=== PATIENT | female | born 1975 | race Caucasian/White ===

== ENCOUNTER 2016-08-27 13:45 | Emergency (ER) | payer OTHER ==
[2016-08-27 13:57] VITALS: BP 130/82; PULSE 69; TEMP 98.1; BMI 26.6
[2016-08-27] MEDS ORDERED: diazePAM 5 MG TABLET ONE (15:07)
[2016-08-27] MEDS ORDERED: ACETAMINOPHEN 325 MG TABLET (FP) ONE (15:07)
--- NOTE | 2016-08-27 15:12 | PDOC ---
History of Present Illness - General Chief Complaint: Headache Stated Complaint: HEADACHE Time Seen by Provider: 08/27/16 14:55 History Source: Patient, Spouse Exam Limitations: No Limitations - History of Present Illness Initial Comments: 08/27/16 15:11 c/o headache pain to left head x 10 days. Patient states onset was less intense but has progressively become worse. States is primarily to the left side starts at the occiput and wraps around to the left forehead. Denies nausea or vomiting , denies fever, denies any earache or sore throat pain. Denies any mental status changes, any neurologic changes including weakness, unilateral numbness or tingling. No visual changes.. States some occasional headache that is resolved with Tylenol. Patient works as a preliminary school psychologist, denies alcohol or drug use. Her normal menstrual cycle and denies any recent sexual activity. 08/27/16 15:15 08/27/16 15:17 08/27/16 15:17 Severity: Yes: mild, moderate Associated Symptoms: reports: muscle spasms, nausea/vomiting (no vomiting ). denies: fever/chills, loss of consciousness, slurred speech, tingling in legs/ feet Past History - Travel Traveled outside of the country in the last 30 days: No Close contact w/someone who was outside of country & ill: No - Past Medical History Allergies/Adverse Reactions: Allergies Allergy/AdvReac Type Severity Reaction Status Date / Time amoxicillin [Amoxicillin] Allergy Verified 08/27/16 13:50 ampicillin [Ampicillin] Allergy Verified 08/27/16 13:50 aspirin Allergy Verified 08/27/16 13:50 codeine [Codeine] Allergy Verified 08/27/16 13:50 naproxen [From Naprosyn] Allergy Verified 08/27/16 13:50 Home Medications: Ambulatory Orders Cyclobenzaprine HCl [Flexeril 10 mg] 10 mg PO BID PRN #14 tablet 08/27/16 Asthma: Yes Cancer: No Cardiac Disorders: No Diabetes: Yes (gdm) HTN: Yes Seizures: No Thyroid Disease: No - Psycho/Social/Smoking Cessation Hx Anxiety: No Suicidal Ideation: No Smoking Status: No Smoking History: Never smoked Have you smoked in the past 12 months: No Number of Cigarettes Smoked Daily: 0 Information on smoking cessation initiated: No Hx Alcohol Use: No Drug/Substance Use Hx: No Substance Use Type: Alcohol Hx Substance Use Treatment: No Review of Systems - Review of Systems Able to Perform ROS?: Yes Is the patient limited Citizen Of [place] proficient: Yes Constitutional: Yes: Symptoms Reported, See HPI, Malaise. No: Fever HEENTM: Yes: See HPI, Nose Congestion. No: Symptoms Reported, Blurred Vision, Tearing, Ocular Prothesis Respiratory: Yes: See HPI. No: Symptoms reported Cardiac (ROS): No: Symptoms Reported Musculoskeletal: Yes: Symptoms Reported, See HPI, Back Pain, Muscle Pain Integumentary: No: Symptoms Reported Neurological: Yes: Symptoms reported, See HPI, Headache (wraparound scalp ). No : Numbness Psychiatric: No: Anxiety All Other Systems: Reviewed and Negative *Physical Exam - Vital Signs Last Vital Signs Temp Pulse Resp BP Pulse Ox 98.1 F 69 18 130/82 100 08/27/16 13:55 08/27/16 13:55 08/27/16 13:55 08/27/16 13:55 08/27/16 13:55 - Physical Exam General Appearance: Yes: Nourished, Appropriately Dressed, Apparent Distress, Mild Distress, Moderate Distress HEENT: positive: [place], Normal ENT Inspection, TMs Normal, Pharynx Normal Neck: positive: Supple, Other (with palpable spasm along the sternocleidomastoid that reproduces pain with palpation at the insertion of occiput and reproduces pain with pressure wrap around into front of scalp and forehead muscles , no cervical spine pain/ crepitus ). negative: Tender Respiratory/Chest: positive: Lungs Clear Cardiovascular: positive: Regular Rhythm Musculoskeletal: positive: Normal Inspection, Muscle Spasm Extremity: positive: Normal Capillary Refill, Normal Inspection, Normal Range of Motion Integumentary: positive: Dry, Warm, Pale Neurologic: positive: shoe associate II-XII NML intact, Fully Oriented, Alert, Normal Mood/ Affect, Normal Response, Motor Strength 5/5 Progress Note - Progress Note Progress Note: Tension headache and cervical strain with palpable spasm. We'll treat with antispasmodics and Tylenol as patient has aspirin and NSAID ALLERGY *DC/Admit/Observation/Transfer Diagnosis at time of Disposition: Cervical myofascial strain Qualifiers: Encounter type: initial encounter Qualified Code(s): S16.1XXA - Strain of muscle, fascia and tendon at neck level, initial encounter - Discharge Dispostion Disposition: HOME Condition at time of disposition: Stable Admit: No - Referrals Referrals: Jose Antonio Blount MD [Staff Physician] - - Patient Instructions Printed Discharge Instructions: DI for Cervical Muscle Strain Additional Instructions: Rest, no heavy lifting or exercise until pain is resolved Hot soaks to neck and low back as often as possible/hot showers or Jacuzzis No massage or therapy until spasm is gone Continue Tylenol 2 - 500 mg tablets every 6 hours for the next 3 days then as needed for pain and swelling Cyclobenzaprine 1-10mg every 8 hours as needed for spasm If not significant improvement within 24 hours with medication and rest regime, followup with private physician for change in medications and /or therapy. - Post Discharge Activity Work/School Note: Back to Work
[2016-08-27] MEDS ORDERED: ACETAMINOPHEN 500 MG TABLET (FP) PO ONE (15:13)
[2016-08-27] MEDS ORDERED: diazePAM 5 MG TABLET PO ONE (15:14)
== END 2016-08-27 15:30 | disposition home or self-care (01) ==
LOC: JER 13:45
DX: S16.1XXA Strain of muscle, fascia and tendon at neck level, initial encounter (principal); G44.209 Tension-type headache, unspecified, not intractable; M62.838 Other muscle spasm; I10 Essential (primary) hypertension; X58.XXXA Exposure to other specified factors, initial encounter; Y93.89 Activity, other specified; Y92.89 Other specified places as the place of occurrence of the external cause
CPT/HCPCS: 99281-25

== ENCOUNTER 2016-09-15 11:56 | Emergency (ER) | payer OTHER ==
[2016-09-15 12:02] VITALS: BP 146/93; PULSE 70; TEMP 98.6; BMI 27.4
[2016-09-15] MEDS ORDERED: METOCLOPRAMIDE HCL INJECTION 10 MG/2 ML VIAL IVPUSH ONE (12:50)
--- NOTE | 2016-09-15 12:52 | PDOC ---
History of Present Illness - General History Source: Patient Exam Limitations: No Limitations - History of Present Illness Initial Comments: 09/15/16 13:44 The patient is a 41 year old female with no significant past medical history, who presents to the ER with hypertension, dizzines and headache for one day. Patient states she had hypertension yesterday, measured at 154/104. She states the blood pressure today lowered but she had associated mild pressure like headache and dizziness. Patient localizes the headache to the left side on interview. She states she previously had hypertension three years ago, for which she took hypertension medication for one year and resolved the issue. Patient says her baseline blood pressure falls in the range of 120-128 systolic range. Denies shortness of breath, chest pain Denies nausea, vomiting, diarrhea Denies vision changes, neck pain, back pain, syncope Denies fever, chills, cough <Mary Bianchi - Last Filed: 09/15/16 13:44> <Hubert Ibarra - Last Filed: 09/15/16 15:42> - General Chief Complaint: Lightheaded Stated Complaint: BP PROBLEM Time Seen by Provider: 09/15/16 12:39 Past History <Mary Bianchi - Last Filed: 09/15/16 13:44> - Past Medical History Asthma: Yes Cancer: No Cardiac Disorders: No Diabetes: Yes (GESTATIONAL) HTN: Yes (GESTATIONAL) Seizures: No Thyroid Disease: No - Psycho/Social/Smoking Cessation Hx Anxiety: No Suicidal Ideation: No Smoking Status: No Smoking History: Never smoked Have you smoked in the past 12 months: No Number of Cigarettes Smoked Daily: 0 Hx Alcohol Use: No Drug/Substance Use Hx: No Substance Use Type: None Hx Substance Use Treatment: No <Hubert Ibarra - Last Filed: 09/15/16 15:42> - Past Medical History Allergies/Adverse Reactions: Allergies Allergy/AdvReac Type Severity Reaction Status Date / Time amoxicillin [Amoxicillin] Allergy Verified 09/15/16 12:02 ampicillin [Ampicillin] Allergy Verified 09/15/16 12:02 aspirin Allergy Verified 09/15/16 12:02 codeine [Codeine] Allergy Verified 09/15/16 12:02 naproxen [From Naprosyn] Allergy Verified 09/15/16 12:02 Home Medications: Ambulatory Orders Cyclobenzaprine HCl [Flexeril 10 mg] 10 mg PO BID PRN #14 tablet 08/27/16 Review of Systems - Review of Systems Able to Perform ROS?: Yes Comments:: 09/15/16 13:44 CONSTITUTIONAL: No reported: Fever, Chills, Diaphoresis, Generalized Weakness, Malaise, Loss of Appetite HEENT: No reported: Rhinorrhea, Nasal Congestion, Throat Pain, Throat Swelling, Difficulty Swallowing, Mouth Swelling, Ear Pain, Eye Pain, Visual Changes CARDIOVASCULAR: No reported: Chest Pain, Syncope, Palpitations, Irregular Heart Rate, Lightheadedness, Peripheral Edema RESPIRATORY: No reported: Cough, Shortness of Breath, SOB with Exertion, Orthopnea, Wheezing , Stridor, Hemoptysis GASTROINTESTINAL: No reported: Abdominal pain, Abdominal Distension, Nausea, Vomiting, Diarrhea, Constipation, Melena, Hematochezia GENITOURINARY: No reported: Dysuria, Frequency, Urgency, Hesitancy, Flank Pain, Genital Pain MUSCULOSKELETAL: No reported: Myalgia, Arthralgia, Joint Swelling, Back pain, Neck Pain SKIN: No reported: Rash, Itching, Pallor HEMEATOLOGIC/IMMUNOLOGIC: No reported: Easy Bleeding, Easy Bruising, Lymphadenopathy, Frequent infections ENDOCRINE: No reported: Unexplained Weight Gain, Unexplained Weight Loss, Heat Intolerance , Cold Intolerance NEUROLOGIC: Reported: (+) headache, (+) dizziness No reported: Focal Weakness, Paresthesias, Vertigo, Lightheadedness, Unsteady Gait, Seizure, Mental Status Changes, Incontinence PSYCHIATRIC: No reported: Anxiety, Depression <Uts,Mary - Last Filed: 09/15/16 13:44> *Physical Exam - Vital Signs Last Vital Signs Temp Pulse Resp BP Pulse Ox 98.6 F 70 20 146/93 99 09/15/16 11:59 09/15/16 11:59 09/15/16 11:59 09/15/16 11:59 09/15/16 11:59 - Physical Exam Comments: 09/15/16 13:44 GENERAL: The patient is awake, alert, and fully oriented, Nontoxic - in no acute distress. HEAD: Normocephalic, atraumatic. EYES: extraocular movements intact, sclera anicteric, conjunctiva clear. ENT: Normal voice, Moist mucous membranes. NECK: Normal range of motion, supple LUNGS: Breath sounds equal, clear to auscultation bilaterally. No wheezes, no rhonchi, no rales. HEART: Regular rate and rhythm, without murmur, rub or gallop. ABDOMEN: Soft, nontender, normoactive bowel sounds. No guarding, no rebound.No CVA tenderness EXTREMITIES: Normal range of motion, no edema. No clubbing or cyanosis. No cords, erythema, or tenderness. NEUROLOGICAL: No facial assymetry, Normal speech, PSYCH: Normal mood, normal affect. SKIN: Warm, Dry, normal turgor <Uts,Mary - Last Filed: 09/15/16 13:44> - Vital Signs Last Vital Signs Temp Pulse Resp BP Pulse Ox 98.6 F 70 20 146/93 99 09/15/16 11:59 09/15/16 11:59 09/15/16 11:59 09/15/16 11:59 09/15/16 11:59 <Hubert Ibarra - Last Filed: 09/15/16 15:42> Heart Score/ECG Review - ECG Impressions Comment:: 09/15/16 14:42 Twelve-lead EKG was performed and reviewed by me. There is normal sinus rhythm with a normal rate. rate of 62 The axis is normal. The intervals are normal. There is normal R wave progression There are no ST or T wave abnormalities. Impression: Normal twelve-lead EKG <Hubert Ibarra - Last Filed: 09/15/16 15:42> ED Treatment Course - LABORATORY CBC & Chemistry Diagram: 09/15/16 14:11 09/15/16 14:11 <Hubert Ibarra - Last Filed: 09/15/16 15:42> Medical Decision Making - Medical Decision Making 09/15/16 12:51 41y F hx of gestational htn, gestational dm presents with compalint of mild headache and sh checked her bp and saw it was 155 sbp and was concerned so came to the ED. The pt is well appearing on exam, no neuro complaints, no cp/sob will ck basic labs will give reglan bp here is reasonable, borderline high will have pt fu with pmd for further evaluation of bp A portion of this note was documented by scribe services under my direction. I have reviewed the details of the note, within reason, and agree with the documentation with the following case summary and management plan written by me 09/15/16 15:42 pts blood work reviewed unremrakble will dc the pt with pmd fur for her bp return precautions were discused I discussed the physical exam findings, ancillary test results and final diagnoses with the patient. I answered all of the patient's questions. The patient was satisfied with the care received and felt comfortable with the discharge plan and treatment plan. The patient will call their primary care physician within 24 hours to arrange follow-up and will return to the Emergency Department with any new, persistent or worsening symptoms. <Hubert Ibarra - Last Filed: 09/15/16 15:42> *DC/Admit/Observation/Transfer - Attestations Scribe Attestion: 09/15/16 13:45 Documentation prepared by Mary Bianchi, acting as medical supervisor for Hubert Ibarra MD. <Mary Bianchi - Last Filed: 09/15/16 13:44> - Discharge Dispostion Admit: No <Hubert Ibarra - Last Filed: 09/15/16 15:42> Diagnosis at time of Disposition: Lightheaded - Discharge Dispostion Disposition: HOME Condition at time of disposition: Improved - Referrals Referrals: Ana Laura Ashley [Primary Care Provider] - - Patient Instructions Printed Discharge Instructions: DI for High Blood Pressure Additional Instructions: Return to the emergency department immediately with ANY new, persistent or worsening symptoms. Follow up with your primary care doctor for evaluation of your blood pressure in 7-10 days. Results were discussed with you. Please make sure your doctor reviews the results of your emergency evaluation. Print Language: SOMALI
[2016-09-15] MEDS ORDERED: METOCLOPRAMIDE HCL INJECTION 10 MG/2 ML VIAL ONE (13:50)
[2016-09-15 14:09] LABS: BASOPHIL 0.4 % (0-2.0); EOSINOPHIL 1.9 % (0-4.5); MCH 29.7 pg (25.7-33.7); MCHC 34.1 g/dl (32.0-36.0); MEAN CELL VOLUME 87.2 fl (80-96); NEUTROPHILS 45.3 % (42.8-82.8); PLATELET COUNT 355 K/MM3 (134-434); RDW 12.9 % (11.6-15.6); WHITE BLOOD COUNT 5.8 K/mm3 (4.0-10.0)
[2016-09-15 14:53] LABS: ANION GAP 10 (8-16); CALCIUM 8.9 mg/dL (8.5-10.1); CO2 28 mmol/L (21-32); CREATININE 0.6 mg/dL (0.55-1.02); GLUCOSE,RANDOM 90 mg/dL (74-106); TOT PROT 6.7 g/dl (6.4-8.2)
[2016-09-15 14:54] LABS: ALBUMIN 3.3 g/dl (3.4-5.0); ALK PHOS 66 U/L (45-117); BILIRUBIN,TOTAL 0.3 mg/dL (0.2-1.0); SGOT/AST 18 U/L (15-37); SGPT/ALT 18 U/L (12-78)
[2016-09-15 15:20] LABS: URINE APPEARANCE CLEAR; URINE BILIRUBIN NEGATIVE (NEGATIVE); URINE COLOR STRAW; URINE GLUCOSE (UA) NEGATIVE (NEGATIVE); URINE KETONE NEGATIVE (NEGATIVE); URINE LEUK ESTERASE NEGATIVE (NEGATIVE); URINE NITRITE NEGATIVE (NEGATIVE); URINE UROBILINOGEN NEGATIVE E.U./dl (0.2-1.0)
[2016-09-15 15:25] LABS: URINE BLOOD 2+ (NEGATIVE); URINE PROTEIN 2+ (NEGATIVE)
[2016-09-15 15:26] LABS: URINE MUCUS RARE; URINE RBC 13 /hpf (0-3); URINE WBC <1 /hpf (3-5)
--- NOTE | 2016-09-16 10:17 | EKG ---
Test Reason : Blood Pressure : / mmHG Vent. Rate : 062 BPM Atrial Rate : 062 BPM P-R Int : 160 ms QRS Dur : 088 ms QT Int : 414 ms P-R-T Axes : 029 010 006 degrees QTc Int : 420 ms NORMAL SINUS RHYTHM NORMAL ECG WHEN COMPARED WITH ECG OF 03-AUG-2012 03:24, NO SIGNIFICANT CHANGE WAS FOUND Confirmed by ANGIE MUHAMMAD MD ([id number]) on 09/16/2016 10:16:34 AM Referred By: Confirmed By:ANGIE MUHAMMAD MD
== END 2016-09-15 16:32 | disposition home or self-care (01) ==
LOC: JER 11:56
PROC: 3E033GC Introduction of Other Therapeutic Substance into Peripheral Vein, Percutaneous Approach (ICD-10-PCS; principal; 2016-09-15)
DX: R42 Dizziness and giddiness (principal); I10 Essential (primary) hypertension
CPT/HCPCS: 80053; 81003; 81015; 93005; 93010; 96374; 99283-25

== ENCOUNTER 2017-05-06 11:53 | Emergency (ER) | payer OTHER ==
[2017-05-06 12:09] VITALS: BMI 29.0
[2017-05-06] MEDS: ALBUTEROL SO4 2.5/IPRATROPIUM 0.5 INH SOL 3 ML VIAL.NEB. NEB SCH ×4 (13:15→13:59)
[2017-05-06] MEDS ORDERED: ALBUTEROL SO4 2.5/IPRATROPIUM 0.5 INH SOL 3 ML VIAL.NEB. NEB ONE ×3 (13:21→13:57)
--- NOTE | 2017-05-06 13:22 | PDOC ---
History of Present Illness - General Chief Complaint: Shortness of Breath Stated Complaint: SOB Time Seen by Provider: 05/06/17 12:57 History Source: Patient Exam Limitations: No Limitations - History of Present Illness Initial Comments: CHIEF COMPLAINT: 41 y/o afebrile female with PMH asthma and HTN (PCP discontinued her BP meds over 1 year ago as her BP was under control) c/o difficulty breathing x 5 days. HISTORY OF PRESENT ILLNESS: The patient states she feels like when she takes a breath she's not getting in enough air. She has tried using her albuterol inhaler with little relief. She denies LARSON, dizziness, f/c, n/v/d, cough, CP, abd pain, back pain, hematuria, dysuria. Vital signs on arrival are concerning for BP of 130/110. REVIEW OF SYSTEMS: GENERAL/CONSTITUTIONAL: No fever/chills. No weakness. No weight change. HEAD, EYES, EARS, NOSE AND THROAT: No change in vision. No ear pain or discharge. No sore throat. CARDIOVASCULAR: +SOB. No chest pain. RESPIRATORY: No cough, wheezing, or hemoptysis. GASTROINTESTINAL: No abd pain, nausea, vomiting, diarrhea. GENITOURINARY: No dysuria, frequency, or change in urination. MUSCULOSKELETAL: No joint or muscle swelling or pain. No neck or back pain. SKIN: No rash or easy bruising. NEUROLOGIC: No headache, vertigo, loss of consciousness, or loss of sensation. PHYSICAL EXAM: GENERAL: The patient is awake, alert, and fully oriented, in no acute distress. She is well appearing and ambulatory. HEAD: Normal with no signs of trauma. ENT: Pupils equal, round and reactive to light, extraocular movements intact, sclera anicteric, conjunctiva clear. Neck supple. LUNGS: Decreased breath sounds in b/l bases. Normal excursion. No respiratory distress or use of accessory muscles. No wheezing, rhonchi, rales, crackles. CV: RRR, S1/S2, no MRG. Cap refill < 2 sec. ABDOMEN: Soft, non-distended, non-tender even to deep palpation, no hepatomegaly or splenomegaly, no masses. EXTREMITIES: Normal range of motion, no edema. NEUROLOGICAL: Normal speech, normal gait. CN II-XII grossly intact. PSYCH: Normal mood, normal affect. SKIN: Warm, dry, normal turgor, no rashes or lesions noted. Past History - Past Medical History Allergies/Adverse Reactions: Allergies Allergy/AdvReac Type Severity Reaction Status Date / Time amoxicillin [Amoxicillin] Allergy Verified 05/06/17 12:04 ampicillin [Ampicillin] Allergy Verified 05/06/17 12:04 aspirin Allergy Verified 05/06/17 12:04 codeine [Codeine] Allergy Verified 05/06/17 12:04 naproxen [From Naprosyn] Allergy Verified 05/06/17 12:04 Home Medications: Ambulatory Orders Albuterol Sulfate Inhaler - [Ventolin HFA Inhaler -] 1 - 2 inh PO Q4H #1 inhaler 05/06/17 Albuterol Sulfate [Ventolin -] 2 mg IN PRN 05/06/17 Prednisone [Deltasone -] 60 mg PO DAILY #12 tablet 05/06/17 Asthma: Yes Cancer: No Cardiac Disorders: No CVA: No COPD: No Diabetes: Yes (GESTATIONAL) HTN: Yes (GESTATIONAL) Seizures: No Thyroid Disease: No - Surgical History Abdominal Surgery: Yes (TUBAL LIGATION) - Suicide/Smoking/Psychosocial Hx Smoking Status: No Smoking History: Never smoked Have you smoked in the past 12 months: No Number of Cigarettes Smoked Daily: 0 Information on smoking cessation initiated: No Hx Alcohol Use: No Drug/Substance Use Hx: No Substance Use Type: None Hx Substance Use Treatment: No *Physical Exam - Vital Signs Last Vital Signs Temp Pulse Resp BP Pulse Ox 97.7 F 74 18 130/110 100 05/06/17 12:05 05/06/17 12:05 05/06/17 12:05 05/06/17 12:05 05/06/17 12:05 Medical Decision Making - Medical Decision Making A/P: 41 y/o female with SOB. Plan is as follows: 1. Duoneb x 2 2. Reassess After 2 duonebs lung exam reveals increased breath sounds. Patient states she feels slightly better but still slightly SOB. Will give PO prednisone and 2 more duonebs. The patient states she feels much better after 3rd/4th neb and prednisone and would like to go home. She does state she needs a new inhaler. patient's BP is much improved. She remains asx without headache, blurry vision or dizziness Will discharge to home with rx for inhaler and 4 day course of steroids. Pt instructed to return to the ER with any worsening or concerning symptoms. The patient verbalizes understanding of all instructions, has no further questions and is awaiting discharge. *DC/Admit/Observation/Transfer Diagnosis at time of Disposition: Asthma exacerbation Qualifiers: Asthma severity: moderate Asthma persistence: unspecified Qualified Code(s): J45.901 - Unspecified asthma with (acute) exacerbation High blood pressure Qualifiers: Hypertension type: unspecified Qualified Code(s): I10 - Essential (primary) hypertension - Discharge Dispostion Disposition: HOME Condition at time of disposition: Improved - Prescriptions Prescriptions: Albuterol Sulfate Inhaler - [Ventolin HFA Inhaler -] 1 - 2 inh PO Q4H #1 inhaler Prednisone [Deltasone -] 60 mg PO DAILY #12 tablet - Referrals Referrals: Gold Blank MD [Staff Physician] - - Patient Instructions Printed Discharge Instructions: DI for Asthma -- Adult, DI for High Blood Pressure Additional Instructions: Discharge Instructions: -Your blood pressure was very high in the ER; without treatment you could end up with a permanent disability or even . -Take medications as prescribed for asthma symptoms -Follow up with Dr. Blank within 2 weeks for a blood pressure check -Return to the ER immediately with any worsening or concerning symptoms - Post Discharge Activity Forms/Work/School Notes: Back to Work
[2017-05-06] MEDS ORDERED: predniSONE 20 MG TABLET (UD) PO ONE (13:56)
[2017-05-06] MEDS ORDERED: predniSONE 20 MG TABLET (UD) ONE (13:57)
[2017-05-06 15:22] VITALS: BP 140/84; PULSE 94; TEMP 97.8
== END 2017-05-06 15:15 | disposition home or self-care (01) ==
LOC: JER 11:53
PROC: 3E0F7GC Introduction of Other Therapeutic Substance into Respiratory Tract, Via Natural or Artificial Opening (ICD-10-PCS; principal; 2017-05-06)
PROC: 3E0F7GC Introduction of Other Therapeutic Substance into Respiratory Tract, Via Natural or Artificial Opening (ICD-10-PCS; 2017-05-06)
DX: J45.901 Unspecified asthma with (acute) exacerbation (principal); I10 Essential (primary) hypertension
CPT/HCPCS: 94640; 99282-25

== ENCOUNTER 2017-05-11 11:35 | Emergency (ER) | payer OTHER ==
[2017-05-11 11:45] VITALS: BP 150/64; PULSE 74; TEMP 97.8; BMI 29.0
[2017-05-11] MEDS ORDERED: diphenhydrAMINE HCL 25 MG CAPSULE (FP) PO ONE ×2 (12:48→12:50)
--- NOTE | 2017-05-11 12:55 | PDOC ---
History of Present Illness - General Chief Complaint: Asthma Stated Complaint: SOB Time Seen by Provider: 05/11/17 12:41 History Source: Patient Exam Limitations: No Limitations - History of Present Illness Initial Comments: 05/11/17 12:50 Patient here with complaints of persistent shortness of breath, cough, and postnasal drainage. States had an asthma exacerbation with URI last week, was treated with prednisone. States feels still has continued wheezing and shortness of breath. Admits to being anxious and stressed, and wonders if may be anxiety related. Severity: reports: mild, moderate Associated Symptoms: reports: nasal congestion, shortness of breath. denies: cough, fever/chills, headache, wheezing Past History - Travel Traveled outside of the country in the last 30 days: No Close contact w/someone who was outside of country & ill: No - Past Medical History Allergies/Adverse Reactions: Allergies Allergy/AdvReac Type Severity Reaction Status Date / Time amoxicillin [Amoxicillin] Allergy Verified 05/11/17 11:45 ampicillin [Ampicillin] Allergy Verified 05/11/17 11:45 aspirin Allergy Verified 05/11/17 11:45 codeine [Codeine] Allergy Verified 05/11/17 11:45 naproxen [From Naprosyn] Allergy Verified 05/11/17 11:45 Home Medications: Ambulatory Orders Diphenhydramine HCl [Benadryl -] 25 mg PO Q8H PRN #30 capsule 05/11/17 Fluticasone Prop 0.05% Nasal [Flonase] 2 spray NS BID #1 spraybtl 05/11/17 Loratadine [Claritin -] 10 mg PO DAILY #30 tablet 05/11/17 Asthma: Yes Cancer: No Cardiac Disorders: No CVA: No COPD: No Diabetes: Yes (GESTATIONAL) HTN: Yes (GESTATIONAL) Seizures: No Thyroid Disease: No - Surgical History Abdominal Surgery: Yes (TUBAL LIGATION) - Suicide/Smoking/Psychosocial Hx Smoking Status: No Smoking History: Never smoked Have you smoked in the past 12 months: No Number of Cigarettes Smoked Daily: 0 Hx Alcohol Use: No Drug/Substance Use Hx: No Substance Use Type: None Hx Substance Use Treatment: No Review of Systems - Review of Systems Able to Perform ROS?: Yes Is the patient limited Swedish proficient: Yes Constitutional: Yes: Symptoms Reported, See HPI, Malaise. No: Fever, Loss of Appetite HEENTM: Yes: Symptoms Reported, See HPI, Nose Congestion. No: Throat Pain Respiratory: Yes: Symptoms reported, See HPI, Cough, Shortness of Breath. No: Productive cough Musculoskeletal: Yes: Symptoms Reported, See HPI All Other Systems: Reviewed and Negative *Physical Exam - Vital Signs Last Vital Signs Temp Pulse Resp BP Pulse Ox 97.8 F 74 18 150/64 98 05/11/17 11:43 05/11/17 11:43 05/11/17 11:43 05/11/17 11:43 05/11/17 11:43 - Physical Exam General Appearance: Yes: Nourished, Appropriately Dressed, Apparent Distress ( mild air hunger and jittery), Mild Distress HEENT: positive: [place], TMs Normal (but congested), Pharynx Normal (with some posterior sinus drainage noted white), Rhinorrhea Neck: positive: Supple. negative: Tender, Lymphadenopathy (R), Lymphadenopathy (L) Respiratory/Chest: positive: Lungs Clear, Normal Breath Sounds. negative: Rhonchi, Stridor, Wheezing Cardiovascular: positive: Regular Rhythm Gastrointestinal/Abdominal: positive: Normal Bowel Sounds, Soft. negative: Tender Musculoskeletal: negative: Normal Inspection Extremity: positive: Normal Capillary Refill, Normal Inspection Integumentary: positive: Dry, Warm, Pale Neurologic: positive: strategic client executive II-XII NML intact, Fully Oriented, Alert, Normal Mood/ Affect, Normal Response, Motor Strength 5/5 Progress Note - Progress Note Progress Note: ALLERGIC rhinitis, postnasal sinus drainage with mild anxiety associated with shortness of breath. We'll change antihistamines to Benadryl to add mild sedative/anti-anxiolytic properties and have follow-up with PMD on Saturday to discuss possible anxiety related illness *DC/Admit/Observation/Transfer Diagnosis at time of Disposition: Allergic rhinitis Qualifiers: Allergic rhinitis trigger: unspecified Allergic rhinitis seasonality: unspecified seasonality Qualified Code(s): J30.9 - Allergic rhinitis, unspecified - Discharge Dispostion Disposition: HOME Condition at time of disposition: Stable Admit: No - Prescriptions Prescriptions: Diphenhydramine HCl [Benadryl -] 25 mg PO Q8H PRN #30 capsule PRN Reason: sneezing/cough Fluticasone Prop 0.05% Nasal [Flonase] 2 spray NS BID #1 spraybtl Loratadine [Claritin -] 10 mg PO DAILY #30 tablet - Referrals - Patient Instructions Printed Discharge Instructions: DI for Allergic Rhinitis Additional Instructions: Rest, drink lots of fluids: Teas, water, soups Saltwater gargles. Consider humidifier in room at night Steamy showers/seem to face break up mucus Avoid contact with allergens, exposure to pollens, close windows on a windy day Lots of handwashing and good hygiene Continue [id number] medications for symptomatic relief- may use allergic eyedrops for itching I Continue antihistamines daily until pollen season is over; Zyrtec, Claritin, Akrina during the daytime and Benadryl at nighttime as will make sleepy Tylenol or Motrin for fever and pain Followup with private physician in one to 2 days as needed Consider following up with an music pastor/casting chipper for skin testing and possible allergy shots Return to emergency department for worsened symptoms, fevers, dehydration - Post Discharge Activity Forms/Work/School Notes: Back to Work
== END 2017-05-11 12:58 | disposition home or self-care (01) ==
LOC: JERFT 11:35
DX: J30.9 Allergic rhinitis, unspecified (principal); Z87.09 Personal history of other diseases of the respiratory system
CPT/HCPCS: 99281-25

== ENCOUNTER 2020-05-24 08:54 | Emergency (ER) | payer OTHER ==
[2020-05-24 09:04] VITALS: BMI 28.0
[2020-05-24 09:49] LABS: BASO % 0.6 % (0-2.0); EOS % 0.6 % (0-4.5); HEMATOCRIT 37.4 % (32.4-45.2); HEMOGLOBIN 12.7 GM/dL (10.7-15.3); LYMPH % 49.5 % (8-40); MCHC 33.9 g/dl (32.0-36.0); MEAN CELL VOLUME 85.5 fl (80-96); MEAN PLT VOLUME 7.1 fl (7.5-11.1); MONO % 6.8 % (3.8-10.2); NEUT % 42.5 % (42.8-82.8); PLATELET COUNT 410 K/MM3 (134-434); RBC 4.37 M/mm3 (3.60-5.2); RDW 13.2 % (11.6-15.6); WHITE BLOOD COUNT 4.9 K/mm3 (4.0-10.0)
[2020-05-24] MEDS ORDERED: BAMLANIVIMAB 700 MG in SODIUM CHLORIDE 250 ML IVPB ONE (09:49)
[2020-05-24 10:01] LABS: ALBUMIN 3.3 g/dl (3.4-5.0); BLOOD UREA NITROGEN 9.6 mg/dL (7-18)
[2020-05-24 10:03] LABS: CALCIUM 9.3 mg/dL (8.5-10.1)
[2020-05-24 10:05] LABS: BILIRUBIN,TOTAL 0.2 mg/dL (0.2-1); CREATININE 0.9 mg/dL (0.55-1.3)
[2020-05-24 10:07] LABS: TOT PROT 6.7 g/dl (6.4-8.2)
[2020-05-24 10:48] LABS: ANISOCYTOSIS 0; MACROCYTOSIS 0; PLATELET ESTIMATE NORMAL
[2020-05-24 12:40] VITALS: BP 114/75; PULSE 69; TEMP 97.9
== END 2020-05-24 12:44 | disposition home or self-care (01) ==
LOC: JCOVINFU 08:54
PROC: 3E033GC Introduction of Other Therapeutic Substance into Peripheral Vein, Percutaneous Approach (ICD-10-PCS; principal; 2020-05-24)
DX: U07.1 COVID-19 (principal)
CPT/HCPCS: 36415; 80053; 84703; 85025; 99284-25; M0239; Q0239

== ENCOUNTER 2020-07-09 17:38 | Emergency (ER) | payer OTHER ==
[2020-07-09 18:01] VITALS: BP 115/80; PULSE 81; TEMP 98.2; BMI 30.7
[2020-07-09 19:18] LABS: BASO % 0.7 % (0-2.0); EOS % 2.9 % (0-4.5); HEMOGLOBIN 12.4 GM/dL (10.7-15.3); LYMPH % 39.7 % (8-40); MCHC 33.5 g/dl (32.0-36.0); MEAN CELL VOLUME 86.4 fl (80-96); MEAN PLT VOLUME 7.5 fl (7.5-11.1); NEUT % 50.7 % (42.8-82.8); PLATELET COUNT 419 K/MM3 (134-434); RBC 4.28 M/mm3 (3.60-5.2); RDW 13.8 % (11.6-15.6); WHITE BLOOD COUNT 7.1 K/mm3 (4.0-10.0)
[2020-07-09 19:37] LABS: CHLORIDE 101 mmol/L (98-107); SODIUM 136 mmol/L (136-145)
[2020-07-09 19:40] LABS: ALBUMIN 3.8 g/dl (3.4-5.0); ANION GAP 6 MMOL/L (8-16); BLOOD UREA NITROGEN 18.1 mg/dL (7-18); CALCIUM 10.3 mg/dL (8.5-10.1); CO2 29 mmol/L (21-32)
[2020-07-09 19:42] LABS: GLUCOSE,RANDOM 84 mg/dL (74-106)
[2020-07-09 19:43] LABS: CREATININE 0.9 mg/dL (0.55-1.3); SGOT/AST 20 U/L (15-37); SGPT/ALT 22 U/L (13-61)
[2020-07-09 19:46] LABS: ALK PHOS 83 U/L (45-117); BILIRUBIN,TOTAL 0.2 mg/dL (0.2-1); TOT PROT 7.3 g/dl (6.4-8.2)
== END 2020-07-09 20:15 | disposition home or self-care (01) ==
LOC: JER 17:38
DX: R07.9 Chest pain, unspecified (principal)
CPT/HCPCS: 36415; 71046-TC-FY; 80053; 82550; 84484; 85025; 93005; 93010; 99285-25